=== PATIENT | female | born 1955 | race Caucasian/White ===

== ENCOUNTER 2024-09-02 10:00 | Inpatient (IN) | payer MEDICARE, MEDICAID ==
[2024-09-02] MEDS ORDERED: Sodium Chloride 0.9% 10 ML Syringe FLUSH PRN (11:07)
[2024-09-02 11:18] LABS: BASOPHILS PERCENT AUTO 0.2 % (0.0-1.0); EOSINOPHILS PERCENT AUTO 0.1 % (0.0-6.0); HEMATOCRIT 40.5 % (37.0-47.0); HEMOGLOBIN 13.4 gm/dl (12.0-16.0); IMMATURE GRAN ABSOLUTE AUTO 0.05 K/mm3 (0.00-0.05); IMMATURE GRAN PERCENT AUTO 0.4 % (0.0-0.4); LYMPHOCYTES PERCENT AUTO 7.6 % (24.0-44.0); MEAN CORPUSCULAR HEMOGLOBIN 29.6 pg (28.0-32.0); MEAN CORPUSCULAR HGB CONC 33.1 g/dl (32.0-36.0); MEAN CORPUSCULAR VOLUME 89.4 fl (83.0-99.0); MEAN PLATELET VOLUME 10.1 fl (9.4-12.3); MONOCYTES ABSOLUTE AUTO 0.9 K/mm3 (0.0-0.8); MONOCYTES PERCENT AUTO 6.8 % (0.0-8.0); NEUTROPHILS ABSOLUTE AUTO 11.6 K/mm3 (1.8-7.7); NEUTROPHILS PERCENT AUTO 84.9 % (41.0-71.0); PLATELET COUNT,PLT 261 K/mm3 (150-400); RED BLOOD CELL COUNT 4.53 M/mm3 (4.10-5.30)
[2024-09-02] MEDS: fentaNYL 100 MCG/2 ML SDV IVPUSH ONE ×2 (11:24→14:26)
[2024-09-02] MEDS: Ondansetron 4 MG/2 ML SDV IVPUSH ONE (11:26)
[2024-09-02] MEDS: Sodium Chloride 0.9% 500 ML IV ONE ×2 (11:30→14:27)
[2024-09-02] MEDS: Sodium Chloride 0.9% 10 ML Syringe FLUSH PRN (11:30)
[2024-09-02 11:38] LABS: A/G RATIO 0.8 (1-2); ALBUMIN 3.2 g/dl (3.4-5.0); ANION GAP 14.4 (5-15); BILIRUBIN TOTAL 0.4 mg/dL (0.2-1.0); BUN/CREATININE RATIO 16.3 (14-18); CALCIUM 9.9 mg/dL (8.5-10.1); CREATININE 0.8 mg/dL (0.55-1.02); EST CRCL DRUG DOSING (CG) 64.01 mL/min; MAGNESIUM 1.8 mg/dL (1.8-2.4); POTASSIUM,K 3.4 mEq/L (3.5-5.1)
[2024-09-02 11:52] LABS: LACTIC ACID 2.4 mmol/L (0.4-2.0)
[2024-09-02] MEDS: Iopamidol 612 MG/ML 100 ML Bottle IVPUSH ONE (12:08)
[2024-09-02] MEDS: Piperacillin/Tazobactam 4.5 GM in Sodium Chloride 0.9% 100 ML IV ONE (14:27)
[2024-09-02 15:11] LABS: APPEARANCE,URINE CLEAR (Clear); BILIRUBIN,URINE NEGATIVE (Negative); COLOR,URINE YELLOW (Yellow); GLUCOSE,URINE NEGATIVE (Negative); KETONES,URINE 3+ (Negative); LEUKOCYTE ESTERASE,URINE NEGATIVE (Negative); NITRITE,URINE NEGATIVE (Negative); OCCULT BLOOD,URINE 2+ (Negative); PROTEIN,URINE 1+ (Negative); UROBILINOGEN,URINE 0.2 (0.2-1.0)
[2024-09-02] MEDS ORDERED: Sennosides/Docusate Sodium 50-8.6 MG Tab PO PRN (15:30)
[2024-09-02] MEDS ORDERED: LORazepam 2 MG/ML SDV IV PRN (15:30)
[2024-09-02] MEDS: Sodium Chloride 0.9% 1,000 ML IV ONE (15:30)
[2024-09-02] MEDS ORDERED: Ondansetron 4 MG Tab.DIS PO PRN (15:30)
[2024-09-02 15:41] LABS: BACTERIA,URINE FEW /hpf (FEW); MUCUS,URINE FEW /hpf (FEW); RBC,URINE 20-30 /hpf (0-5)
[2024-09-02] MEDS: Sennosides/Docusate Sodium 50-8.6 MG Tab PO SCH (16:26)
[2024-09-02] MEDS: Potassium Chloride 20 MEQ Tab.ER PO ONE (16:26)
[2024-09-02] MEDS: Piperacillin/Tazobactam 4.5 GM in Sodium Chloride 0.9% 100 ML IV SCH (17:55)
[2024-09-02] MEDS: Lactated Ringers 1,000 ML IV SCH (17:56)
[2024-09-02] MEDS: Ondansetron 4 MG/2 ML SDV IV PRN (20:26)
[2024-09-02] MEDS: rOPINIRole 1 MG Tab PO SCH (20:26)
[2024-09-02] MEDS ORDERED: Albuterol 0.083% 2.5 MG/3 ML Neb Soln NEB PRN (20:35)
[2024-09-02] MEDS: Albuterol/Ipratropium 3.0-0.5 MG/3 ML Neb Soln NEB SCH (21:03)
[2024-09-02] MEDS: Budesonide 0.5 MG/2 ML Neb Susp NEB SCH (21:04)
[2024-09-03] MEDS: Acetaminophen 325 MG Tab PO PRN (03:09)
[2024-09-03] MEDS: Ketorolac 15 MG/ML SDV IVPUSH PRN (04:21)
[2024-09-03 04:51] LABS: BASOPHILS PERCENT AUTO 0.5 % (0.0-1.0); EOSINOPHILS ABSOLUTE AUTO 0.1 K/mm3 (0.0-0.4); EOSINOPHILS PERCENT AUTO 0.6 % (0.0-6.0); HEMATOCRIT 33.5 % (37.0-47.0); IMMATURE GRAN ABSOLUTE AUTO 0.03 K/mm3 (0.00-0.05); IMMATURE GRAN PERCENT AUTO 0.3 % (0.0-0.4); LYMPHOCYTES ABSOLUTE AUTO 1.3 K/mm3 (1.0-4.8); LYMPHOCYTES PERCENT AUTO 14.4 % (24.0-44.0); MEAN CORPUSCULAR HEMOGLOBIN 29.8 pg (28.0-32.0); MEAN CORPUSCULAR HGB CONC 32.8 g/dl (32.0-36.0); MEAN CORPUSCULAR VOLUME 90.8 fl (83.0-99.0); MEAN PLATELET VOLUME 11.1 fl (9.4-12.3); MONOCYTES ABSOLUTE AUTO 0.7 K/mm3 (0.0-0.8); NEUTROPHILS ABSOLUTE AUTO 6.8 K/mm3 (1.8-7.7); NEUTROPHILS PERCENT AUTO 76.2 % (41.0-71.0); PLATELET COUNT,PLT 191 K/mm3 (150-400); RED BLOOD CELL COUNT 3.69 M/mm3 (4.10-5.30); WHITE BLOOD CELL COUNT,WBC 8.85 K/mm3 (3.9-11.3)
[2024-09-03 05:27] LABS: A/G RATIO 0.8 (1-2); ALBUMIN 2.5 g/dl (3.4-5.0); ANION GAP 13.6 (5-15); BILIRUBIN TOTAL 0.4 mg/dL (0.2-1.0); BUN/CREATININE RATIO 14.3 (14-18); C-REACTIVE PROTEIN 2.32 mg/dL (<0.30); CALCIUM 8.6 mg/dL (8.5-10.1); CREATININE 0.7 mg/dL (0.55-1.02); EST CRCL DRUG DOSING (CG) 56.02 mL/min; MAGNESIUM 1.5 mg/dL (1.8-2.4); PHOSPHORUS 2.7 mg/dL (2.6-4.7); POTASSIUM,K 3.6 mEq/L (3.5-5.1); PROTEIN TOTAL,TP 5.5 g/dl (6.4-8.2)
[2024-09-03] MEDS: Budesonide 0.5 MG/2 ML Neb Susp NEB SCH (09:30)
[2024-09-03] MEDS: Enoxaparin 40 MG/0.4 ML Syringe SUBCUT SCH (09:47)
[2024-09-03] MEDS ORDERED: Magnesium Sulfate/Water Premix 4 GM in Premix Bag 1 BAG IV ONE (10:01)
[2024-09-03] MEDS: Polyethylene Glycol 3350 Powder 17 GM Packet PO SCH (13:50)
[2024-09-03] MEDS: Potassium Phosphates 30 MMOLE in Sodium Chloride 0.9% 500 ML IV ONE (14:02)
[2024-09-03] MEDS: Magnesium Sulfate/Water Premix 4 GM in Premix Bag 1 BAG IV ONE (14:07)
[2024-09-03] MEDS: Montelukast 10 MG Tab PO SCH (20:20)
[2024-09-03] MEDS: Piperacillin/Tazobactam 4.5 GM in Sodium Chloride 0.9% 100 ML IV SCH (20:20)
[2024-09-03] MEDS: Aspirin 81 MG Tab.EC PO SCH (20:20)
[2024-09-03] MEDS: Melatonin 3 MG Tab PO PRN (20:20)
[2024-09-04 04:47] LABS: BASOPHILS PERCENT AUTO 0.4 % (0.0-1.0); EOSINOPHILS ABSOLUTE AUTO 0.3 K/mm3 (0.0-0.4); EOSINOPHILS PERCENT AUTO 3.5 % (0.0-6.0); HEMATOCRIT 31.4 % (37.0-47.0); HEMOGLOBIN 10.4 gm/dl (12.0-16.0); IMMATURE GRAN ABSOLUTE AUTO 0.02 K/mm3 (0.00-0.05); IMMATURE GRAN PERCENT AUTO 0.3 % (0.0-0.4); LYMPHOCYTES ABSOLUTE AUTO 1.8 K/mm3 (1.0-4.8); LYMPHOCYTES PERCENT AUTO 24.5 % (24.0-44.0); MEAN CORPUSCULAR HEMOGLOBIN 29.6 pg (28.0-32.0); MEAN CORPUSCULAR HGB CONC 33.1 g/dl (32.0-36.0); MEAN CORPUSCULAR VOLUME 89.5 fl (83.0-99.0); MEAN PLATELET VOLUME 10.4 fl (9.4-12.3); MONOCYTES ABSOLUTE AUTO 0.7 K/mm3 (0.0-0.8); MONOCYTES PERCENT AUTO 9.4 % (0.0-8.0); NEUTROPHILS ABSOLUTE AUTO 4.4 K/mm3 (1.8-7.7); NEUTROPHILS PERCENT AUTO 61.9 % (41.0-71.0); PLATELET COUNT,PLT 203 K/mm3 (150-400); RED BLOOD CELL COUNT 3.51 M/mm3 (4.10-5.30); WHITE BLOOD CELL COUNT,WBC 7.13 K/mm3 (3.9-11.3)
[2024-09-04 05:06] LABS: ANION GAP 9.1 (5-15); BUN/CREATININE RATIO 11.7 (14-18); C-REACTIVE PROTEIN 1.08 mg/dL (<0.30); CALCIUM 8.4 mg/dL (8.5-10.1); CREATININE 0.6 mg/dL (0.55-1.02); EST CRCL DRUG DOSING (CG) 65.35 mL/min; MAGNESIUM 1.9 mg/dL (1.8-2.4); PHOSPHORUS 3.6 mg/dL (2.6-4.7); POTASSIUM,K 3.1 mEq/L (3.5-5.1)
[2024-09-04] MEDS: Potassium Chloride 20 MEQ Tab.ER PO ONE (08:38)
[2024-09-04] MEDS: Polyethylene Glycol 3350 Powder 17 GM Packet PO SCH (08:38)
[2024-09-04] MEDS: Pantoprazole 40 MG Tab.CR PO SCH (08:38)
[2024-09-04] MEDS: Calcium Carbonate 500 MG Tab.Chew PO PRN (09:23)
[2024-09-04] MEDS: Potassium Bicarbonate/Cit Ac 20 MEQ Effervescent Tab PO ONE (09:23)
[2024-09-04] MEDS: ACETYLCYSTEINE 600 MG PO SCH (10:09)
[2024-09-04] MEDS: ROFLUMILAST 500 MCG PO SCH (10:10)
[2024-09-05 04:39] LABS: HEMATOCRIT 32.9 % (37.0-47.0); HEMOGLOBIN 10.8 gm/dl (12.0-16.0); MEAN CORPUSCULAR HEMOGLOBIN 29.4 pg (28.0-32.0); MEAN CORPUSCULAR HGB CONC 32.8 g/dl (32.0-36.0); MEAN CORPUSCULAR VOLUME 89.6 fl (83.0-99.0); MEAN PLATELET VOLUME 11.3 fl (9.4-12.3); PLATELET COUNT,PLT 190 K/mm3 (150-400); RED BLOOD CELL COUNT 3.67 M/mm3 (4.10-5.30); WHITE BLOOD CELL COUNT,WBC 6.75 K/mm3 (3.9-11.3)
[2024-09-05 05:02] LABS: ANION GAP 12.2 (5-15); BUN/CREATININE RATIO 8.6 (14-18); CALCIUM 8.6 mg/dL (8.5-10.1); CREATININE 0.7 mg/dL (0.55-1.02); EST CRCL DRUG DOSING (CG) 56.02 mL/min; MAGNESIUM 1.7 mg/dL (1.8-2.4); POTASSIUM,K 3.2 mEq/L (3.5-5.1)
[2024-09-05] MEDS: Pantoprazole 40 MG Tab.CR PO SCH (08:42)
[2024-09-05] MEDS: Magnesium Sulfate/Water Premix 4 GM in Premix Bag 1 BAG IV ONE (10:31)
[2024-09-05] MEDS: Potassium Bicarbonate/Cit Ac 20 MEQ Effervescent Tab PO ONE (10:31)
[2024-09-05] MEDS: Diltiazem 240 MG Cap.ER PO ONE (10:31)
[2024-09-06] MEDS ORDERED: Polyethylene Glycol 3350 Powder 17 GM Packet PO SCH (09:00)
== END 2024-09-05 18:25 | disposition home or self-care (01) | DRG 872 ==
LOC: JD.ED 10:00 → JD.MS 15:30
PROVIDERS: ADMIT Student in an Organized Health Care Education/Training Program; ATTEND Student in an Organized Health Care Education/Training Program
DX: K56.609 Unspecified intestinal obstruction, unspecified as to partial versus complete obstruction (principal); K52.9 Noninfective gastroenteritis and colitis, unspecified; A41.9 Sepsis, unspecified organism; K56.600 Partial intestinal obstruction, unspecified as to cause; E87.20 Acidosis, unspecified; A09 Infectious gastroenteritis and colitis, unspecified; R65.20 Severe sepsis without septic shock; J44.9 Chronic obstructive pulmonary disease, unspecified; R93.5 Abnormal findings on diagnostic imaging of other abdominal regions, including retroperitoneum; K59.00 Constipation, unspecified; I48.91 Unspecified atrial fibrillation; I50.9 Heart failure, unspecified; N18.2 Chronic kidney disease, stage 2 (mild); M41.9 Scoliosis, unspecified; K44.9 Diaphragmatic hernia without obstruction or gangrene; K76.0 Fatty (change of) liver, not elsewhere classified; E87.6 Hypokalemia; E83.42 Hypomagnesemia; E83.39 Other disorders of phosphorus metabolism; E86.0 Dehydration; Z99.81 Dependence on supplemental oxygen; Z79.51 Long term (current) use of inhaled steroids; Z79.52 Long term (current) use of systemic steroids; Z79.899 Other long term (current) drug therapy; Z79.82 Long term (current) use of aspirin; Z87.891 Personal history of nicotine dependence; Z85.3 Personal history of malignant neoplasm of breast
CPT/HCPCS: 36415; 74177; 80053; 81001; 83605 ×2; 83690; 83735; 85025; 87040 ×2; 93005; 96361; 96365; 96375; 96376; 99285; J2405; J2543; J3010 ×2; J3490 ×3; J7030 ×3; Q9967; 74019; 74019-26; 80048; 84100; 85027; 86140; 93010; 94640; 94760; 94761; 94762; 99223; 99232; 99233; 99239; 99284; A9270-GY; J1650; J1885; J3475; J7040; J7120; J7620-GY

== ENCOUNTER 2025-08-07 13:35 | Day surgery (SDC) | payer MEDICARE, MEDICAID ==
[2025-08-07] MEDS: Tetracaine HCl/PF 0.5% 4 ML Bottle EYEBOTH SCH (07:40)
[2025-08-07] MEDS: Pilocarpine 4% Ophth Soln 15 ML Bot EYERT SCH (07:40)
[2025-08-07] MEDS: Cefuroxime 10 MG/ML SYRINGE EYERT SCH (07:40)
[2025-08-07] MEDS: Lidocaine 1% PF 2 ML SDV INJECT SCH (07:40)
[2025-08-07] MEDS: Polymyxin B/Trimethoprim 10 ML Bottle EYERT SCH (07:41)
[2025-08-07] MEDS: Tropicamide 1% Ophth Soln 3 ML Bottle EYERT SCH (14:02)
== END 2025-08-07 15:27 ==
LOC: JD.SDS 13:35
PROVIDERS: ATTEND Ophthalmology
DX: H25.813 Combined forms of age-related cataract, bilateral (principal); H21.81 Floppy iris syndrome; H21.40 Pupillary membranes, unspecified eye; H52.31 Anisometropia; H40.033 Anatomical narrow angle, bilateral; H18.513 Endothelial corneal dystrophy, bilateral; H18.413 Arcus senilis, bilateral; H02.834 Dermatochalasis of left upper eyelid; H02.831 Dermatochalasis of right upper eyelid; H57.813 Brow ptosis, bilateral; Z88.8 Allergy status to other drugs, medicaments and biological substances; Z79.82 Long term (current) use of aspirin; Z91.030 Bee allergy status; Z79.899 Other long term (current) drug therapy
CPT/HCPCS: A9270-GY; J0697; J3490

== ENCOUNTER 2025-09-04 07:15 | Day surgery (SDC) | payer MEDICARE, MEDICAID ==
[2025-09-04] MEDS: Polymyxin B/Trimethoprim 10 ML Bottle EYELF SCH (07:10)
[~2025-09-04 07:15] MED LIST: Pilocarpine 4% Ophth Soln 15 ML Bot EYELF SCH
[2025-09-04] MEDS: Tropicamide 1% Ophth Soln 3 ML Bottle EYELF SCH (07:17)
[2025-09-04] MEDS: Tetracaine HCl/PF 0.5% 4 ML Bottle EYEBOTH SCH (08:21)
[2025-09-04] MEDS: Lidocaine 1% PF 2 ML SDV INJECT SCH (08:48)
[2025-09-04] MEDS: Cefuroxime 10 MG/ML SYRINGE EYELF SCH (09:00)
== END 2025-09-04 09:12 | disposition home or self-care (01) ==
LOC: JD.SDS 07:15
PROVIDERS: ATTEND Ophthalmology
DX: H25.812 Combined forms of age-related cataract, left eye (principal); H21.81 Floppy iris syndrome; H21.40 Pupillary membranes, unspecified eye; H40.032 Anatomical narrow angle, left eye; I50.9 Heart failure, unspecified; Z96.1 Presence of intraocular lens; Z88.8 Allergy status to other drugs, medicaments and biological substances; Z91.030 Bee allergy status; Z87.891 Personal history of nicotine dependence; Z79.899 Other long term (current) drug therapy
CPT/HCPCS: A9270-GY; J0697; J3490